=== PATIENT | male | born 1955 ===

== ENCOUNTER 2018-07-29 09:29 | Day surgery (SDC) | payer BC ==
[~2018-07-29] VITALS: Ht 167.6 cm; Wt 91.0 kg
[~2018-07-29 09:29] MED LIST: ALLO300 PO; AMOX500 PO; HYDACE5 PO; LOSARTAN POTASS50 MG PO; METO50ER PO; NAPR550 PO; PRED5 PO; RXAMOX500 PO; RXHYDACE PO; SPIR25 PO; TORSE20; TORSE20 PO; XARELTO20 MG PO
--- NOTE | 2018-07-29 12:50 | NUR ---
PT SITTING UP IN RECLINER DRINKING COFFEE AND VISITING WITH . PT DENIES CHEST PAIN OR ANY PAIN. RIGHT RADIAL TR BAND SITE WITH WRIST BOARD SOFT NON-TENDER WITH NO HEMATOMA AND NO PULSATILE BLEEEDING. CALL LIGHT IN REACH.
[2018-07-29] MEDS ORDERED: Adult Low Dose81 MG PO (13:12)
[2018-07-29] MEDS ORDERED: CLOP75 PO (13:13)
--- NOTE | 2018-07-29 15:00 | NUR ---
FULL REPORT FROM RONNIE BRADLEY RN TO ASSUME CARE. PT RESTING COMFORTABLY. VSS. NADN. PT R RADIAL TR BAND FULLY DEFLATED. NO BLEEDING OR HEMATOMA NOTED. FAMILY AND PT VERBALIZES UNDERSTANDING WRITTEN AND VERBAL ORDERS. PT DENIES NEEDS AT THIS TIME. CALL LIGHT WITHIN REACH.
--- NOTE | 2018-07-29 15:22 | NUR ---
PT AMBULATES TO RESTROOM AND BACK WITHOUT DIFF. VSS. NADN.
--- NOTE | 2018-07-29 15:51 | NUR ---
PT DRESSES SELF WITHOUT DIFF. TR BAND REMOVED, SMALL AMOUNT OF OOZING NOTED. PRESSURE APPLIED TO R RADIAL X 15 MIN. NO LONGER BLEEDING OR HEMATOMA NOTED. DOT DSG WITH PRESSURE BANDAGE APPLIED/ PT TO REMOVE IN THE AM. SPLINT AND SLING IN PLACE. PT TOLERATES WELL. VSS. NADN. PT DC TO HOME VIA S/O BY .
--- NOTE | 2018-07-29 15:54 | NUR ---
PT IV DC'D. CATH IN TACT. PRESSURE BANDAGE APPLIED. TOLERATES WELL
== END 2018-07-29 15:45 | disposition home or self-care (01) ==
LOC: MHTC 09:29
DX: I25.10 Atherosclerotic heart disease of native coronary artery without angina pectoris (principal); I42.0 Dilated cardiomyopathy; Z87.891 Personal history of nicotine dependence
CPT/HCPCS: 85347; 93458; 93571; 99152; 99153; C1725; C1769; C1874; C1887; C1894; C9600; J1644; J2250; J3010; J7030; J7040; Q9967

== ENCOUNTER → 2019-07-03 | Outpatient (CLI) | payer MEDICARE ==
[~2019-07-03] MED LIST changes: +Adult Low Dose81 MG PO; +Bactrim Ds Tab1 EACH PO; +CEPH500 PO; +CLOP75 PO; +Norco 5-325 Ta1 EACH PO
[2019-07-04 06:17] LABS: Stool Occult Bld Immuno 1 Negative (NEGATIVE)
== END | disposition home or self-care (01) ==
LOC: LAB EV 11:30
PROVIDERS: Internal Medicine
DX: D53.9 Nutritional anemia, unspecified (principal)
CPT/HCPCS: 82274

== ENCOUNTER 2019-08-27 12:53 | Emergency (ER) | payer MEDICARE ==
[~2019-08-27] VITALS: Ht 170.2 cm; Wt 86.2 kg
== END 2019-08-27 14:36 | disposition home or self-care (01) ==
LOC: ER 12:53
DX: M79.81 Nontraumatic hematoma of soft tissue (principal); I48.91 Unspecified atrial fibrillation; I50.9 Heart failure, unspecified; I25.10 Atherosclerotic heart disease of native coronary artery without angina pectoris; M35.3 Polymyalgia rheumatica; Z79.01 Long term (current) use of anticoagulants
CPT/HCPCS: 93971; 99283-25

== ENCOUNTER 2023-05-24 12:40 | Day surgery (SDC) | payer MEDICARE ==
[~2023-05-24] VITALS: Ht 167.6 cm; Wt 93.9 kg
[2023-05-24] MEDS ORDERED: ATOR40TA PO (12:59)
[2023-05-24] MEDS ORDERED: Diflucan200 MG PO (13:00)
[2023-05-24 15:34] VITALS: BP 111/77
== END 2023-05-24 15:37 | disposition home or self-care (01) ==
LOC: ORSCSDS 12:40
DX: R13.14 Dysphagia, pharyngoesophageal phase (principal); K21.9 Gastro-esophageal reflux disease without esophagitis; R19.4 Change in bowel habit; Z86.010 Personal history of colon polyps; D12.0 Benign neoplasm of cecum; D12.3 Benign neoplasm of transverse colon; K62.1 Rectal polyp; K57.30 Diverticulosis of large intestine without perforation or abscess without bleeding; Z87.891 Personal history of nicotine dependence; G47.33 Obstructive sleep apnea (adult) (pediatric); I48.91 Unspecified atrial fibrillation; Z79.01 Long term (current) use of anticoagulants; Z79.899 Other long term (current) drug therapy; Z68.34 Body mass index [BMI] 34.0-34.9, adult
CPT/HCPCS: 88305; 88342; J0461; J1980; J2001; J2405; J2704; J7120; Q9968